=== PATIENT | male | born 1965 | race Caucasian/White ===

== ENCOUNTER 2022-01-02 09:16 | Outpatient (CLI) | payer MEDICARE ==
[2022-01-02 10:29] LABS: Hemoglobin 13.6 g/dL (13.5-17.5); Mean Corpuscular HGB CONC 34.8 g/dL (32.0-36.0); Mean Corpuscular Hemoglobin 32.2 pg (27.0-33.0); Mean Corpuscular Volume 92.7 fl (81.2-95.1); Mean Platelet Volume 9.5 fl (7.4-10.4); Platelet Count 236 10x3/uL (150-450); RBC Distribution Width 12.6 % (11.5-14.5); Red Blood Cell (RBC) Count 4.22 10x6/uL (4.32-5.72); White Blood Cell (WBC) Count 10.1 10x3/uL (3.5-10.5)
[2022-01-02 10:50] LABS: INR-International Normal Ratio 0.9; PTT 23.7 sec (22.0-33.0); Prothrombin Time 10.3 sec (9.5-12.1)
[2022-01-02 10:56] LABS: Anion Gap 12 mmol/L (10-20); BUN (Urea Nitrogen) 14 mg/dL (8.4-25.7); Calc. Creatinine Clearance 0 mL/min (70-130); Calcium 10.2 mg/dL (7.8-10.44); Carbon Dioxide 28 mmol/L (22-29); Chloride 104 mmol/L (98-107); Glucose 111 mg/dL (70-105); Sodium 139 mmol/L (136-145)
[2022-01-02 22:51] LABS: SARS-CoV-2 PCR by NAA Not Detected (NotDetected)
== END 2022-01-02 09:17 | disposition home or self-care (01) ==
LOC: LABBT 09:16
PROVIDERS: ATTEND Urology
DX: Z01.812 Encounter for preprocedural laboratory examination (principal); N20.1 Calculus of ureter; Z20.822 Contact with and (suspected) exposure to COVID-19
CPT/HCPCS: 80048; 85027; 85610; 85730; U0003; U0005

== ENCOUNTER 2022-01-06 10:01 | Day surgery (SDC) | payer MEDICARE ==
[2022-01-02 11:18] VITALS: BMI 320945.9
[2022-01-06 12:06] LABS: Bacteria/HPF None Seen HPF (None Seen); Bilirubin Negative (Negative); Blood, Urine Negative (Negative); Clarity Clear (Clear); Glucose, Urine (Dipstick) Normal (Negative); Ketone, Urine Negative (Negative); Leukocyte Negative Leu/uL (Negative); Nitrite Negative (Negative); Protein, Urine (Dipstick) Negative (Neg-Trace); RBC/HPF 0-3 HPF (0-3); Specific Gravity, Urine 1.023 (1.002-1.036); Squamous Epithelial None Seen HPF (0-3); Urobilinogen Normal mg/dL (Less than 2); WBC/HPF 0-3 HPF (0-3); pH, Urine 7.5 (5.0-9.0)
[2022-01-06 12:08] LABS: Urine Culture Reflex No No
[2022-01-06] MEDS ORDERED: Fentanyl 100 MCG/2 ML VIAL ONE ×2 (13:02→14:23)
[2022-01-06] MEDS ORDERED: Sodium Chloride 0.9% 100 ML ONE (13:12)
[2022-01-06] MEDS ORDERED: cefTRIAXone\\ROCEPHIN 2 GM VIAL ONE (13:12)
[2022-01-06] MEDS ORDERED: Ondansetron PF 4 MG/2 ML Vial ONE (13:18)
[2022-01-06] MEDS ORDERED: Dexamethasone 20 MG/5 ML VIAL ONE (13:18)
[2022-01-06] MEDS ORDERED: Lidocaine 1% PF 5 ML VIAL ONE (13:18)
[2022-01-06] MEDS ORDERED: PROPOFOL 200 MG/20 ML VIAL ONE (13:18)
[2022-01-06] MEDS ORDERED: Ioversol 68 % 50 ML VIAL ONE (13:30)
[2022-01-06] MEDS ORDERED: Iopamidol 15 ML ONE (14:02)
[2022-01-06] MEDS ORDERED: HYDROcodone/Acetaminophen 5/325 mg Tablet ONE ×2 (15:00→15:05)
== END 2022-01-06 16:56 | disposition home or self-care (01) ==
LOC: SDC 10:01
PROVIDERS: ATTEND Urology
PROC: 0TC68ZZ Extirpation of Matter from Right Ureter, Via Natural or Artificial Opening Endoscopic (ICD-10-PCS; principal; 2022-01-06)
PROC: 0T768DZ Dilation of Right Ureter with Intraluminal Device, Via Natural or Artificial Opening Endoscopic (ICD-10-PCS; 2022-01-06)
DX: N20.1 Calculus of ureter (principal); N52.9 Male erectile dysfunction, unspecified; G47.30 Sleep apnea, unspecified; Z79.1 Long term (current) use of non-steroidal anti-inflammatories (NSAID); Z79.891 Long term (current) use of opiate analgesic; Z79.899 Other long term (current) drug therapy; Z88.2 Allergy status to sulfonamides
CPT/HCPCS: 74018; 74420; 81001; 82365; 88300; J0696; J1100; J2405; J2704; J3010; J3490; Q9967

== ENCOUNTER 2025-07-26 10:47 | Outpatient (CLI) | payer BC, OTHER | END 2025-07-26 10:48 | disposition home or self-care (01) | LOC: BICRAD 10:47 | PROVIDERS: ATTEND Orthopaedic Surgery | DX: M54.50 Low back pain, unspecified (principal); M46.1 Sacroiliitis, not elsewhere classified; M47.816 Spondylosis without myelopathy or radiculopathy, lumbar region; M41.9 Scoliosis, unspecified; Z98.890 Other specified postprocedural states | CPT/HCPCS: 72100; 72190 ==

== ENCOUNTER 2025-08-28 13:59 | Outpatient (CLI) | payer BC | END 2025-08-28 14:00 | disposition home or self-care (01) | LOC: BICRAD 13:59 | PROVIDERS: ATTEND Orthopaedic Surgery | DX: M54.50 Low back pain, unspecified (principal); M47.816 Spondylosis without myelopathy or radiculopathy, lumbar region; M41.9 Scoliosis, unspecified; Z98.1 Arthrodesis status | CPT/HCPCS: 72100 ==